=== PATIENT | male | born 1945 | race Caucasian/White ===

== ENCOUNTER 2018-01-21 18:47 | Emergency (ER) | payer OTHER ==
[2018-01-21] MEDS ORDERED: Cyclobenzaprine 10 MG Tab PO ONE (19:04)
[2018-01-21] MEDS ORDERED: Ketorolac 30 MG/ML SDV IM ONE (19:04)
[2018-01-21] MEDS ORDERED: Acetaminophen/oxyCODONE 325-5 MG Tab PO ONE (19:04)
--- NOTE | 2018-01-21 19:09 | EDM.PDOC ---
ED HPI GENERAL MEDICAL PROBLEM - General Chief Complaint: Back Pain or Injury Stated Complaint: BACK INJURY Time Seen by Provider: 01/21/18 18:50 Source of Information: Reports: Patient, Family History Limitations: Reports: Other (no old records) - History of Present Illness INITIAL COMMENTS - FREE TEXT/NARRATIVE: 72 yo male with chronic low back pain sat down in a chair on grass and due to a combination of his weight and the soft earth the chair dipped over backwards. He landed in the soft grass, but has an increase in his back pain. He denies leg numbness. No tx prior to arrival. Arrives via private vehicle. Is on Plavix daily. Is a [facility] visiting [place]. Wears a low back brace for support. Has a pHx of CVA. Onset: Today Onset Date: 01/21/18 Onset Time: 17:45 Duration: Hour(s): (1), Constant Location: Reports: Back (low) Quality: Reports: Ache Severity: Moderate Improves with: Reports: Rest Worsens with: Reports: Movement Context: Reports: Trauma (see HPI) Associated Symptoms: Reports: No Other Symptoms Treatments STUDENT OUTREACH COORDINATOR: Reports: Other (see below) (none) Back Pain Score (Numeric/FACES): 10 - Related Data Allergies Allergy/AdvReac Type Severity Reaction Status Date / Time latex Allergy Swelling Verified 01/21/18 19:42 metformin Allergy Stomach Verified 01/21/18 19:22 Upset Penicillins Allergy Cannot Verified 01/21/18 19:22 Remember Home Meds: Home Meds *Acid Reflux Pill 01/21/18 [History] *Cholesterol Pill 01/21/18 [History] *Fiber 01/21/18 [History] *Flomax 01/21/18 [History] *Gabapentin 01/21/18 [History] *Glipizide 1 tab PO DAILY 01/21/18 [History] *Muscle Relaxer 01/21/18 [History] *Pain Pill 01/21/18 [History] *Plavix 1 tab PO DAILY 01/21/18 [History] *Pro-Biotic 01/21/18 [History] *Q10 01/21/18 [History] Hydrochlorothiazide/Lisinopril [Lisinopril/HCTZ 20-12.5 MG] 2 tab PO DAILY 01/21 [History] ED ROS GENERAL - Review of Systems Review Of Systems: See Below Constitutional: Reports: No Symptoms HEENT: Reports: No Symptoms Respiratory: Reports: No Symptoms Cardiovascular: Reports: No Symptoms Endocrine: Reports: No Symptoms GI/Abdominal: Reports: No Symptoms : Reports: No Symptoms Musculoskeletal: Reports: Back Pain Skin: Reports: No Symptoms Neurological: Reports: No Symptoms ED EXAM,LOWER BACK PAIN/INJURY - Physical Exam Exam: See Below Exam Limited By: No Limitations General Appearance: Alert, WD/WN, No Apparent Distress, Obese Eye Exam: Bilateral Eye: Normal Inspection Ears: Normal External Exam, Normal Canal, Hearing Grossly Normal Nose: Normal Inspection, Normal Mucosa, No Blood Throat/Mouth: Normal Inspection, Normal Lips, Normal Oropharynx, Normal Voice, No Airway Compromise Head: Atraumatic, Normocephalic Neck: Normal Inspection, Supple Respiratory/Chest: No Respiratory Distress, Lungs Clear, Normal Breath Sounds, No Accessory Muscle Use Cardiovascular: Regular Rate, Rhythm GI/Abdominal: Normal Bowel Sounds, Soft, Non-Tender, No Distention Back Exam: Paraspinal Tenderness (left and right lumbar), Vertebral Tenderness. No: CVA Tenderness (R), CVA Tenderness (L) Extremities: Normal Inspection, Normal Range of Motion, Non-Tender, No Pedal Edema Neurological: Alert, Normal Mood/Affect, CN II-XII Intact, No Motor/Sensory Deficits, Oriented x 3, Other (speech slightly hesitant due to his prior CVA.) Psychiatric: Normal Affect, Normal Mood Skin Exam: Warm, Dry, Intact, Normal Color, No Rash Course - Vital Signs Last Recorded V/S: Last Vital Signs Temp 36.8 C 01/21/18 20:49 Pulse 78 01/21/18 20:49 Resp 20 01/21/18 20:49 BP 139/77 01/21/18 20:49 Pulse Ox 94 L 01/21/18 20:49 - Orders/Labs/Meds Meds: Medications Discontinued Medications Generic Name Dose Route Start Last Admin Trade Name Reji PRN Reason Stop Dose Admin Cyclobenzaprine HCl 10 mg 01/21/18 19:04 01/21/18 19:49 Flexeril PO 01/21/18 19:05 10 mg ONETIME ONE Administration Ketorolac Tromethamine 30 mg 01/21/18 19:04 01/21/18 19:48 Toradol IM 01/21/18 19:05 30 mg ONETIME ONE Administration Oxycodone HCl 5 mg 01/21/18 21:17 01/21/18 21:23 Oxycodone PO 01/21/18 21:18 5 mg ONETIME ONE Administration Oxycodone/Acetaminophen 2 tab 01/21/18 19:04 01/21/18 19:48 Percocet 325-5 Mg PO 01/21/18 19:05 2 tab ONETIME ONE Administration Departure - Departure Time of Disposition: 21:45 Disposition: Home, Self-Care 01 Condition: Fair Clinical Impression: Acute exacerbation of chronic low back pain - Discharge Information Referrals: PCP,None [Primary Care Provider] - Forms: ED Department Discharge
[2018-01-21] MEDS ORDERED: oxyCODONE 5 MG Tab PO ONE (21:17)
== END 2018-01-21 22:14 | disposition home or self-care (01) ==
LOC: JP.ED 18:47
DX: M54.5 Low back pain (principal); G89.29 Other chronic pain; Z91.040 Latex allergy status; Z88.0 Allergy status to penicillin; Z88.8 Allergy status to other drugs, medicaments and biological substances; Z79.899 Other long term (current) drug therapy
CPT/HCPCS: 96372; 99283; A9270; J1885